=== PATIENT | male | born 1985 | race Caucasian/White ===

== ENCOUNTER 2023-01-10 01:55 | Emergency (ER) | payer OTHER ==
[~2023-01-10] VITALS: Ht 175.3 cm; Wt 95.3 kg
[2023-01-10 02:09] VITALS: BP 126/72
--- NOTE | 2023-01-10 02:19 | NUR ---
TO BED 12 FOLLOWING TRIAGE
--- NOTE | 2023-01-10 02:22 | NUR ---
PT TO BED 01
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
--- NOTE | 2023-01-10 03:02 | NUR ---
Patient resting in bed, A/Ox4, chest rise and fall symmetrical, no s/s of distress, on monitor.
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
[2023-01-10] MEDS ORDERED: LIDOCAINE MPF 1% 5 ML ONE (03:32)
[2023-01-10] MEDS ORDERED: LIDOCAINE 1% 500 MG/ 50 ML VIAL INJ ONE (03:35)
[2023-01-10 03:56] VITALS: BP 115/67
--- NOTE | 2023-01-10 03:56 | NUR ---
Patient discharged with v/s stable. Written and verbal after care instructions given and explained. Patient verbalized understanding. Ambulatory with steady gait. All questions addressed prior to discharge. Advised to follow up with PMD.
== END 2023-01-10 03:56 | disposition home or self-care (01) ==
LOC: MED 01:55
DX: S01.511A Laceration without foreign body of lip, initial encounter (principal); Y04.2XXA Assault by strike against or bumped into by another person, initial encounter; Y93.01 Activity, walking, marching and hiking; Y92.89 Other specified places as the place of occurrence of the external cause; Y99.8 Other external cause status
CPT/HCPCS: 12011; 99282; J2001